=== PATIENT | male | born 1930 | race Caucasian/White ===

== ENCOUNTER 2016-12-18 09:54 | Emergency (ER) | payer MEDICARE, BC ==
[2016-12-18 10:35] VITALS: BP 139/90
[2016-12-18] MEDS ORDERED: Acetaminophen/oxyCODONE 325-5 MG Tab PO ONE (11:05)
--- NOTE | 2016-12-18 11:10 | EDM.PDOC ---
ED HPI GENERAL MEDICAL PROBLEM - General Chief Complaint: Back Pain or Injury Stated Complaint: FALL ON L SHOULDER Time Seen by Provider: 12/18/16 11:00 Source of Information: Reports: Patient History Limitations: Reports: No Limitations - History of Present Illness INITIAL COMMENTS - FREE TEXT/NARRATIVE: Zuhair is an 86 year old male who presents to the ED today with c/o left shoulder pain after slipping and falling coming out of the shower today. Patient struck his shoulder on the ground the the back of his head. He denies any LOC. Patient c/o mild posterior headache, he denies any vomiting or visual changes. Patient endorses pain with movement of left arm, he denies any neck or back pain that is new, hx of degenerative disc disease which he received injections for. Onset: Today - Related Data Allergies Allergy/AdvReac Type Severity Reaction Status Date / Time lovastatin Allergy UNKNOWN Verified 04/22/16 20:26 Home Meds: Home Meds Doxepin [SINEquan] 10 mg PO BEDTIME 05/19/14 [History] Lisinopril 20 mg PO DAILY 05/19/14 [History] Phenytoin Sodium Extended 200 mg PO BEDTIME 05/19/14 [History] Gabapentin 600 mg PO QID 08/03/15 [History] Amitriptyline HCl 10 mg PO BEDTIME 04/22/16 [History] Past Medical History Cardiovascular History: Reports: High Cholesterol, Hypertension Genitourinary History: Reports: Chronic Renal Insuffiency, Other (See Below) Other Genitourinary History: TURP Musculoskeletal History: Reports: Arthritis, Other (See Below) Other Musculoskeletal History: degenerative disc disease-cervical. si joint disfunction Neurological History: Reports: Seizure Other Neuro History: ON PHENYTOIN, NO SEIZURES SINCE Hematologic History: Reports: Anemia Oncologic (Cancer) History: Reports: Basal Cell Carcinoma Dermatologic History: Reports: Other (See Below) Other Dermatologic History: SOME FEEZING OF SPOTS ON FACE, UNKNOWN DIAGNOSIS - Infectious Disease History Infectious Disease History: Reports: Chicken Pox, Measles - Past Surgical History HEENT Surgical History: Reports: Cataract Surgery, Other (See Below) GI Surgical History: Reports: Colonoscopy Neurological Surgical History: Reports: Laminectomy Musculoskeletal Surgical History: Reports: Carpal Tunnel, Knee Replacement, Shoulder Surgery Social & Family History - Tobacco Use Smoking Status *Q: Never Smoker Second Hand Smoke Exposure: No - Caffeine Use Caffeine Use: Reports: None - Alcohol Use Days Per Week of Alcohol Use: 3 Number of Drinks Per Day: 2 Total Drinks Per Week: 6 - Recreational Drug Use Recreational Drug Use: No Recreational Drug Type: Reports: Oxycodone - Living Situation & Occupation Living situation: Reports: Occupation: Retired ED ROS GENERAL - Review of Systems Review Of Systems: ROS reveals no pertinent complaints other than HPI. ED EXAM, UPPER BACK/NECK PAIN - Physical Exam Exam: See Below Exam Limited By: No Limitations General Appearance: Alert, WD/WN, No Apparent Distress Eye Exam: Bilateral Eye: EOMI, PERRL Ears Exam: Normal External Exam, Normal TMs Throat/Mouth Exam: Normal Inspection, Normal Oropharynx Head Exam: Scalp Swelling, Scalp Tenderness (mid posterior, approx 3 cm of swelling noted) Neck Exam: Non-Tender, Full Range of Motion Cardiovascular/Respiratory: Regular Rate, Rhythm, Normal Breath Sounds GI/Abdominal: Normal Bowel Sounds, Soft, Non-Tender Extremities: Other (Pain to posterior left shoulder, distal and proximal pulses intact, capillary refill normal, sensation intact) Neurologic: Alert, Oriented x 3 Psychiatric: Normal Affect Skin Exam: Normal Color, Warm/Dry Lymphatic: No Adenopathy Course - Vital Signs Text/Narrative:: Zuhair is an 86 year old male who presents to the ED today with c/o left shoulder pain after slipping and falling after getting out of the shower. Please refer to HPI and focused exam. Patient did not sustain and LOC and arrives here alert and oriented, he exhibits no neuro/focal deficits. Patient is not on any anti-coagulation therapy. I do not feel a CT scan at this time is warranted. Based on mechanism and age in light of patient's degenerative disc disease, I did obtain a cervical spine CT, this was fortunately negative for any acute findings. X-ray obtained of left shoulder, this was negative for fracture on my review, also discussed and reviewed with Officer. Patient does have hardware from prior rotator cuff repair. Patient was given a dose of Percocet here in the ED with good pain relief. I feel based on exam and work up here today that patient is stable to be discharged home. Head injury precautions were discussed as well as reasons to return to the ED. Patient can wear his shoulder sling for next couple of days for healing. I will send patient home with oxycodone for pain which he can alternate with Tylenol as needed. Patient can follow up with PCP in the next week. He and his are agreeable to plan of care and questions were answered prior to discharge. Patient discharged from the ED with his and in stable condition. Last Recorded V/S: Last Vital Signs Temp 36.5 C 12/18/16 10:38 Pulse 59 L 12/18/16 10:34 Resp 16 12/18/16 10:34 BP 139/90 12/18/16 10:34 Pulse Ox 98 12/18/16 10:34 - Orders/Labs/Meds Orders: Active Orders 24 hr Category Date Time Status Cervical Spine wo Cont [CT] Stat Exams 12/18/16 11:05 Taken Shoulder Comp Lt [CR] Stat Exams 12/18/16 11:04 Taken Meds: Medications Discontinued Medications Generic Name Dose Route Start Last Admin Trade Name Freq PRN Reason Stop Dose Admin Oxycodone/Acetaminophen 2 tab 12/18/16 11:05 12/18/16 11:13 Percocet 325-5 Mg PO 12/18/16 11:06 2 tab ONETIME ONE Administration Departure - Departure Time of Disposition: 13:30 Disposition: Home, Self-Care 01 Condition: Good Clinical Impression: Fall Qualifiers: Encounter type: initial encounter Qualified Code(s): W19.XXXA - Unspecified fall, initial encounter Head injury Qualifiers: Encounter type: initial encounter Qualified Code(s): S09.90XA - Unspecified injury of head, initial encounter Contusion of shoulder, left Qualifiers: Encounter type: initial encounter Qualified Code(s): S40.012A - Contusion of left shoulder, initial encounter - Discharge Information Instructions: Head Injury, Adult, Shoulder Pain Referrals: Siva Slaughter MD [Primary Care Provider] - Forms: ED Department Discharge Additional Instructions: Zuhair, please were your sling for the next 2-3 days for healing. You can take Tylenol as needed, you can take the oxycodone for severe pain. If you develop any complications including blurry vision, vomiting, worsening headache or confusion you need to return to the Emergency Department. Please follow up with your primary care provider in the next week. It was nice meeting you, take care. - My Orders Last 24 Hours: My Active Orders 12/18/16 11:04 Shoulder Comp Lt [CR] Stat 12/18/16 11:05 Cervical Spine wo Cont [CT] Stat - Assessment/Plan Last 24 Hours: My Active Orders 12/18/16 11:04 Shoulder Comp Lt [CR] Stat 12/18/16 11:05 Cervical Spine wo Cont [CT] Stat
--- NOTE | 2016-12-19 09:57 | CR ---
Shoulder Comp Lt HISTORY: Trauma COMPARISON: None FINDINGS: Operative single threaded screw in the humeral head. Mild degenerative change AC joint. No acute fracture or dislocation.
== END 2016-12-18 13:13 | disposition home or self-care (01) ==
LOC: JP.ED 09:54
DX: S09.90XA Unspecified injury of head, initial encounter (principal); S40.012A Contusion of left shoulder, initial encounter; W01.0XXA Fall on same level from slipping, tripping and stumbling without subsequent striking against object, initial encounter; E78.00 Pure hypercholesterolemia, unspecified; I12.9 Hypertensive chronic kidney disease with stage 1 through stage 4 chronic kidney disease, or unspecified chronic kidney disease; N18.9 Chronic kidney disease, unspecified; M50.30 Other cervical disc degeneration, unspecified cervical region; Z88.8 Allergy status to other drugs, medicaments and biological substances; Z79.899 Other long term (current) drug therapy; Z98.890 Other specified postprocedural states; Z96.659 Presence of unspecified artificial knee joint
CPT/HCPCS: 72125; 73030; 99284; A9270